=== PATIENT | female | born 1955 | race Caucasian/White ===

== ENCOUNTER 2017-11-15 12:03 | Day surgery (SDC) | payer OTHER ==
[2017-11-14 14:52] VITALS: BMI 20.5
[2017-11-15] MEDS ORDERED: LIDOCAINE HCL/PF 2% SDV 5ML VIAL ONE ×2 (12:56→13:13)
[2017-11-15] MEDS ORDERED: PROPOFOL 20 ML ONE ×3 (12:56→14:57)
[2017-11-15] MEDS ORDERED: MIDAZOLAM HCL 2 MG/2 ML SINGLE DOSE VIAL ONE (12:57)
[2017-11-15] MEDS ORDERED: DEXAMETHASONE SOD PHOSPHATE 4 MG/1 ML VIAL ONE (13:09)
[2017-11-15] MEDS ORDERED: BUPIVACAINE HCL/PF 0.5% (5MG/ML) 10 ML VIAL ONE (13:09)
[2017-11-15] MEDS ORDERED: ceFAZolin SODIUM 1 GM VIAL ONE (13:23)
[2017-11-15] MEDS ORDERED: ceFAZolin SODIUM 1 GM VIAL IVPB ONE (13:23)
[2017-11-15] MEDS ORDERED: LIDOCAINE HCL 1%, 10 MG/ML (20ML VIAL) PNB ONE (13:59)
[2017-11-15] MEDS ORDERED: BUPIVACAINE HCL/PF 0.5% (5MG/ML) 10 ML VIAL IJ ONE (13:59)
[2017-11-15] MEDS ORDERED: BENZOIN/ALOE VERA/STORAX/TOLU 58 ML BOTTLE ONE (14:54)
[2017-11-15 16:40] VITALS: TEMP 98
--- NOTE | 2017-11-15 16:57 | OP ---
DATE OF OPERATION: 11/15/2017 SURGEON: Ward Valentin M.D. PREOPERATIVE DIAGNOSIS: Exostosis first metatarsal cuneiform joint, dorsal aspect bilaterally. POSTOPERATIVE DIAGNOSIS: Exostosis first metatarsal cuneiform joint, dorsal aspect bilaterally. OPERATION: Exostectomy, dorsal first metatarsal cuneiform joint bilaterally. ANESTHESIA: 15 mL 1% lidocaine and 0.5% Marcaine plain with intravenous sedation. COMPLICATIONS: None. OPERATIVE REPORT: After noting all vital signs to be stable, the patient was brought to the operating room and placed on the table in the supine position. Intravenous sedation was administered. Local anesthesia was administered to both feet using 15 mL of 1% lidocaine and 0.5% Marcaine plain mixed. An ankle tourniquet was then applied to both ankles. Both feet were prepped and draped in the usual sterile fashion. Attention was directed to the right foot. The right foot was elevated and exsanguinated, and the ankle tourniquet was inflated to 250 mmHg. Attention was directed to the dorsal aspect of the first metatarsal cuneiform joint overlying the exostosis. A linear skin incision approximately 3 cm in length was created overlying the joint. The subcutaneous tissue was dissected and retracted. The capsule and periosteal tissue was revealed. The extensor tendons were reflected laterally. No neurovascular structures were identified that necessitated ligation and cautery. A periosteal incision was created overlying the first metatarsal cuneiform at the level of the bump. The periosteal tissue was dissected off the dorsal and medial aspects of the first metatarsal base and medial cuneiform. The dorsal exostosis was noted most prominently at the medial cuneiform. A sagittal saw was then used to resect the dorsal exostosis. The remaining bone spurs were removed via a rotary bur and hand rasp. The site was flushed with copious amounts of sterile saline. No more bone prominences were noted. Neurovascular structures were noted to be intact. The periosteal capsule layers were then reapposed using 3-0 Vicryl. The subcutaneous tissue was then reapposed with 4-0 Vicryl. The skin was then reapposed with 4-0 Prolene using a horizontal mattress suture technique. Postoperative anesthesia was administered to the foot using 8 mL of 0.5% Marcaine and 2 mL of dexamethasone. The foot was dressed in the usual sterile fashion with Steri-Strips, Betadine soaked Adaptic, gauze, Baljinder, and an Landon bandage. The tourniquet was deflated and capillary refill was noted to be within 1 second to all digits. Attention was then directed to the left foot, where a similar incision and procedure was created at the first metatarsal cuneiform joint. No neurovascular structures were identified to be ligated and cauterized on the left foot. The extensor tendons were reflected laterally during the procedure and were noted to be intact post procedure. The patient tolerated the procedure well with no complications. The left foot was dressed as in similar fashion to the right foot and the left foot. Postoperative anesthetic agent was administered at the right foot. The patient tolerated the procedures well and was transferred to the recovery room with vital signs stable. The patient was discharged with postoperative instructions. RUPINDER GOEL/[id number]
[2017-11-15 17:44] VITALS: BP 131/70; PULSE 81
--- NOTE | 2017-11-19 15:36 | PATH ---
Surgical Pathology Report Patient Name: DELMER SANCHEZ [facility] [place]. Rec. #: [id number] /Age/Gender: 1955 (Age: 62) / F Account: [id number] Location: [facility] SURGICAL Taken: 11/15/2017 Received: 11/18/2017 Reported: 11/19/2017 Physicians: Ward Valentin Specimen(s) Received BONE SPUR FROM RIGHT AND LEFT FOOT Clinical History Osteophytes right and left feet Final Diagnosis BONE SPUR FROM RIGHT AND LEFT FEET, RESECTION: FRAGMENTS OF CARTILAGE CAPPED BONE SHOWING DEGENERATIVE CHANGE. Electronically Signed Kim Lezama M.D. Gross Description Received in formalin labeled with "bone spur from right and left feet", are 2 pieces of irregular bone tissue measuring 1 x 0.8 x 0.3 cm in aggregate. The specimen is entirely to the one cassette after decalcification KWS/11/18/2017 sulki/11/18/2017
== END 2017-11-15 17:30 | disposition home or self-care (01) ==
LOC: JASU-SURG 12:03
PROVIDERS: ATTEND Podiatrist Foot & Ankle Surgery
PROC: 0QBN0ZZ Excision of Right Metatarsal, Open Approach (ICD-10-PCS; 2017-11-15)
PROC: 0QBP0ZZ Excision of Left Metatarsal, Open Approach (ICD-10-PCS; principal; 2017-11-15 13:00)
DX: M25.774 Osteophyte, right foot (principal); M25.775 Osteophyte, left foot
CPT/HCPCS: 73630-TC-LT; 73630-TC-RT-FY; 88304-TC; 88311-TC; 94760